=== PATIENT | female | born 1980 | race Caucasian/White ===

== ENCOUNTER 2017-07-27 10:41 | Emergency (ER) | payer BC, MEDICAID ==
[~2017-07-27] VITALS: Ht 162.6 cm; Wt 99.1 kg
[~2017-07-27 10:41] MED LIST: FOLI-49 PO; PRENAT PO
[2017-07-27 10:42] VITALS: Ht 162.6 cm; Wt 99.1 kg
[2017-07-27] MEDS ORDERED: MELO-216 PO (10:48)
[2017-07-27] MEDS ORDERED: OXYC-203 PO (10:48)
[2017-07-27] MEDS ORDERED: KETOROLAC 30 MG INJ IV STA (10:55)
[2017-07-27] MEDS ORDERED: HYDROmorphONE 1 MG/ML SYG IV STA ×2 (10:55→13:49)
[2017-07-27] MEDS ORDERED: ONDANSETRON 4 MG INJ IV STA ×2 (10:55→13:49)
[2017-07-27] MEDS ORDERED: METHYLPREDNISOLONE 125 MG INJ IV ONE (11:00)
[2017-07-27] MEDS ORDERED: IBUP800T25 PO (13:47)
[2017-07-27] MEDS ORDERED: METH750T93 PO (13:47)
[2017-07-27] MEDS ORDERED: HYDR-902 PO (13:47)
--- NOTE | 2017-07-27 13:49 | ERD ---
ER Documentation Chief Complaint Chief Complaint BIB R860, sudden onset lower back - no trauma, chronic pain, herniated disc HPI 36-year-old female with a history of chronic low back pain at L3-L4 due to bulging discs. She says she is complaining of exacerbation of her chronic pain that she has had for several years. The onset was this morning. Pain is sharp bilateral lower lumbar region without radiation to the legs. No numbness no weakness in the legs no loss of bowel or bladder pain is worse with movement better with rest ROS All systems reviewed and are negative except as per history of present illness. Medications Home Meds Active Scripts Methocarbamol* (Robaxin*) 750 Mg Tablet, 750 MG PO TID, #20 TAB Prov:KARLA WILKERSONSTOLOS A. DO 07/27/17 Ibuprofen* (Motrin*) 800 Mg Tab, 800 MG PO Q6H Y for PAIN AND OR ELEVATED TEMP, #30 TAB Prov:KARLA WILKERSONSTOLOS A. DO 07/27/17 Hydrocodone/Acetaminophen ([place] 10-325 Tablet) 1 Each Tablet, 1 TAB PO Q6H Y for PAIN, #20 TAB Prov:LESUSANAPOSTOLOS A. DO 07/27/17 Reported Medications Meloxicam (Mobic) 7.5 Mg Tablet, 7.5 MG PO DAILY, #30 TAB 07/27/17 Oxycodone HCl/Acetaminophen (Percocet 7.5-325 mg Tablet) 1 Each Tablet, 1 EACH PO, TAB 07/27/17 Folic Acid* (Folic Acid*) 1 Mg Tablet, 1 MG PO DAILY, TAB 11/12/14 Multivit/Min/Fol Ac/Iron/Pren* ( S*) 1 Tab Tab, 1 TAB PO DAILY, TAB 11/12/14 Allergies Allergies: Coded Allergies: No Known Allergy (Unverified , 11/12/14) PMhx/Soc History of Surgery: No Anesthesia Reaction: No Hx Neurological Disorder: No Hx Respiratory Disorders: No Hx Cardiac Disorders: No Hx Psychiatric Problems: No Hx Alcohol Use: Yes Hx Tobacco Use: No Smoking Status: Never smoker FmHx Family History: No coronary disease Physical Exam Vitals Vital Signs Date Time Temp Pulse Resp B/P Pulse Ox O2 Delivery O2 Flow Rate FiO2 07/27/17 10:42 98.4 86 18 122/70 100 Physical Exam Const: Well-developed, well-nourished Head: Atraumatic, normocephalic Eyes: Normal Conjunctiva, PERRLA, EOMI, normal sclera, no nystagmus ENT: Normal External Ears, Nose and Mouth, moist mucus membranes. Neck: Full range of motion. No meningismus, no lymphadenopathy. Resp: Clear to auscultation bilaterally, no wheezing, rhonchi, rales Cardio: Regular rate and rhythm, no murmurs, S1 S2 present Abd: Soft, non tender x 4, non distended. Normal bowel sounds, no guarding or rebound, no pulsitile abdominal masses or bruits Skin: No petechiae or rashes, no ecchymosis , no maculopapular rash Back: Bilateral lumbar tenderness to palpation with muscle spasm and worse with movement negative straight leg tests no saddle anesthesia Ext: No cyanosis, or edema, FROM x 4, normal inspection, neurovascularly intact x 4 Neur: Awake and alert, STR 5/5 x 4, sensation intact x 4, no focal findings, cerebellum intact Psych: Normal Mood and Affect Results 24 hrs Laboratory Tests Test 07/27/17 11:55 Serum HCG, Qualitative NEGATIVE Current Medications Medications (Trade) Dose Ordered Sig/Benito Route PRN Reason Start Time Stop Time Status Last Admin Dose Admin Hydromorphone HCl (Dilaudid) 1 mg ONCE STAT IV 07/27/17 10:55 07/27/17 10:57 DC 07/27/17 12:13 Ondansetron HCl (Zofran Inj) 4 mg ONCE STAT IV 07/27/17 10:55 07/27/17 10:57 DC 07/27/17 12:13 Ketorolac Tromethamine (Toradol) 30 mg ONCE STAT IV 07/27/17 10:55 07/27/17 10:57 DC 07/27/17 10:55 Methylprednisolone Sodium Succinate (Solu-Medrol) 125 mg ONCE ONCE IV 07/27/17 11:00 07/27/17 11:01 DC 07/27/17 12:13 Procedures/MDM After IV pain medications are given the patient feels significantly better. Patient is ambulatory in the ER without difficulty Departure Diagnosis: Primary Impression: Back pain Back pain location: low back pain Chronicity: acute Back pain laterality: unspecified Sciatica presence: without sciatica Qualified Code: M54.5 - Acute low back pain without sciatica, unspecified back pain laterality Condition: Stable Patient Instructions: Back Pain (Acute Or Chronic) Referrals: BETTY LEI MD (PCP) EV WILKERSON DO Jul 27, 2017 13:49
[2017-07-27 14:58] VITALS: BP 107/65; PULSE 93; RESP 16; TEMP 98.4
== END 2017-07-27 15:01 | disposition home or self-care (01) ==
LOC: E/R 10:41
DX: M54.5 Low back pain (principal)
CPT/HCPCS: 84703; 96374; 96375; 96376; J1170; J1885; J2405; J2930; Z7502